=== PATIENT | male | born 1990 | race African-American/Black ===

== ENCOUNTER 2017-06-09 21:35 | Emergency (ER) | payer OTHER ==
[2017-06-09 21:52] VITALS: BP 127/77; BMI 23.1
--- NOTE | 2017-06-09 22:53 | DR.GENAD ---
HPI - PCP Primary Care Physician: NFD - Complaint/Symptoms Chief Complaint Doctors Comments: Patient is complaining of left leg pain worst when he is standing and walking for the past 1 1/2 week. States he has been trying to treat himself at home with hot baths, heat, Advil but it has not been helping. states he works at [employer] and he does a lot of walking. He denies any recent trauma to his leg or hip. He denies chest pain or SOB. States he does not have a local doctor. States the pain is 4 of 10 when setting and 10 of 10 when walking. states his left calf hurts at times. He denies swelling of hands or feet. Chief Complaint:: LEFT LEG PAIN POSTERIOR FROM BUTTOCKS TO KNEE; FEELS LIKE A CRAMP; PAIN FOR APPROX 1 1/2 WEEKS; FOOT WILL GO NUMB SOMETIMES Self Treatment fo Chief Complaint: ADVIL - Nurses notes reviewed Nurses Notes Review: Yes - Source History Provided: Patient - Mode of Arrival Mode of Arrival: Ambulatory - Timing Onset of Chief Complaint: 05/23/17 Came on: Suddenly - Duration Duration: Intermittent How lon Duration: Days - Location Location: left leg pain - Severity Severity: Moderate - Modifying Factors Worsens:: walking and standing Improves:: nothing PMH - PMH Past Medical History: No Past Surgical History: No - Family History History of Family Medical Conditions: No - Social History Alcohol Use: None Do you use any recreational Drugs:: No Lives With: Alone Lives Where: Home - infectious screening In the last 2 months have you had wt loss of >10#?: NO Have you had fever, night sweats or hemotysis?: No Have you traveled outside the country in the last 6 months?: No Isolation: Standard ROS - Review of Systems Constitutional: No Symptoms Reported. negative: See HPI, Chills, Diaphoresis, Fever, Malaise, Weakness, Irritable, Fatigue, Loss of Appetite, Other Eyes: No Symptoms Reported ENTM: No Symptoms Reported. negative: See HPI, Ear Pain, Ear Discharge, Pulling on Ears, Hearing Loss, Nose Pain, Nose Discharge, Epistaxis, Nose Congestion, Mouth Pain, Mouth Swelling, Loose Teeth, Drooling, Throat Pain, Throat Swelling, Ear Foreign Body Respiratoy: No Symptoms Reported. negative: See HPI, Productive Cough, Non- Productive Cough, Moist Cough, Dry Cough, Hacking Cough, Barking Cough, Brassy Cough, Orthopnea, Short of Breath, Stridor, Wheezing, Hemoptysis, Other Cardiovascular: No Symptoms Reported. negative: See HPI, Chest Pain, Edema, Palpitations, Syncope, Cyanosis, Skin Mottling, Other Gastrointestinal/Abdominal: No Symptoms Reported. negative: See HPI, Abdominal Pain, Constipation, Diarrhea, Nausea, Vomiting, Food Intolerance, Other Genitourinary: No Symptoms Reported. negative: See HPI, Discharge, Dysuria, Frequency, Hematuria, Pain, Bleeding, Other Neurological: No Symptoms Reported, Problems Walking (left leg pain). negative : See HPI, Anxiety, Depressed, Emotional Problems, Headache, Numbness, Paresthesia, Pre-existing Deficit, Seizure, Tingling, Tremors, Weakness, Dizziness, Speech Problem, Other Musculoskeletal: Left, Leg Integumentary: No Symptoms Reported. negative: See HPI, Change in Color, Change in Hair/Nails, Dryness, Lesions, Lumps, Rash, Itching, Wound, Bruises, Juandice, Other Hematologic/Lymphatic: No Symptoms Reported. negative: See HPI, Anemia, Blood Clots, Easy Bleeding, Easy Bruising, Swollen Glands, Lymphadenopathy, Other Endocrine: No Symptoms Reported Psychiatric: No Symptoms Reported. negative: See HPI, Anxiety, Depression, Hallucinations, Excessive crying, Suicidal, Other PE - Vital Signs Vitals: Temperature 98.1 F Pulse Rate 84 Respiratory Rate 18 Blood Pressure 127/77 O2 Sat by Pulse Oximetry 99 - General Limitations: No Limitations General Appearance: Alert, In No Apparent Distress - Head Head Exam: Normal Inspection, Atraumatic, Normocephalic - Eyes Eye exam: Normal Appearance, PERRL, EOMI. negative: Scleral Icterus, Conjunctival Injection, Nystagmus, Miosis, Mydrasis, Periorbital Swelling, Periorbital Tenderness, Other - ENT ENT Exam: Normal Exam, Normal Oropharynx, Normal External Ear Exam, Mucous Membranes Moist, TM's Normal Bilaterally TM/Canal Exam: Bilateral Normal Nose Exam: Normal Nose Exam Mouth Exam: Normal Inspection Throat Exam: Normal Inspection - Neck Neck Exam: Normal Inspection, Full ROM, Trachea Midline - Chest Chest Inspection: Normal Inspection, Symmetric Chest Wall Rise - Respiratory Respiratory Exam: Normal Lung Sounds Bilat Respiratory Exam: Bilateral Clear to Auscultation - Cardiovascular Cardiovascular Exam: Regular Rate, Normal Rhythm, Normal Heart Sounds. negative : Bradycardia, Tachycardia, Irregular Rhythm, Systolic Murmur, Diastolic Murmur , Rubs, Gallop, Clicks, JVD, +S1, +S2, +S3, +S4, Other - Abdominal Exam Abdominal Exam: Normal Inspection, Normal Bowel Sounds, Soft. negative: Distention, Tenderness, Guarding, Rebound, Rigidity, Dimnished Bowel Sounds, Hyperactive Bowel Sounds, Hypoactive Bowel Sounds, Organomegaly, Trauma, Incision, Ascites, Mass, Bruit, Pulsatile Mass, Hernia, Other Abdominal Tenderness: negative: RUQ, RLQ, LUQ, LLQ, Epigastrium, Suprapubic, Diffuse, Mild, Moderate, Severe, Other - Extremities Extremities Exam: Normal Inspection, Full ROM, Tenderness (left lower thigh with slight tenderness; no swelling or erythema; pulse 3+ left foot), Normal Capillary Refill, Calf Tenderness (left calf) - Back Back Exam: Normal Inspection, Full ROM. negative: Tenderness, (R) CVA Tenderness, (L) CVA Tenderness, Muscle Spasm, Paraspinal Tenderness, Vertebral Tenderness, Rashes, (R) Sciatic Notch Tenderness, (L) Sciatic Notch Tendern, (R ) Straight Leg Raise, (L) Straight Leg Raise, Other - Neurologic Neurological Exam: Alert, Oriented X3, CN II-XII Intact, Normal Gait, Reflexes Normal - Psychiatric Psychiatric Exam: Normal Affect, Normal Mood - Skin Skin Exam: Warm, Dry, Intact, Normal Color ROR - Labs Reviewed Laboratory Results Reviewed?: Yes (All labs and x-ray results reviewed and discussed with patient) Result Diagrams: 06/09/17 23:05 Laboratory: D-Dimer < 100 ng/mL (0-400) 06/09/17 23:05 Sodium 141 mmol/L (136-145) 06/09/17 23:05 Corrected Sodium TNP 06/09/17 23:05 Potassium 4.1 mmol/L (3.5-5.1) 06/09/17 23:05 Chloride 105 mmol/L (98-107) 06/09/17 23:05 Carbon Dioxide 26.4 mmol/L (21-32) 06/09/17 23:05 BUN 12 mg/dL (7-18) 06/09/17 23:05 Creatinine 0.78 mg/dL (0.70-1.30) 06/09/17 23:05 Est GFR (MDRD) Af Amer > 60 (>60) 06/09/17 23:05 Est GFR (MDRD) Non-Af > 60 (>60) 06/09/17 23:05 Glucose 104 mg/dL (65-99) H 06/09/17 23:05 Calcium 8.5 mg/dL (8.5-10.1) 06/09/17 23:05 Creatine Kinase 332 Units/L (39-308) H 06/09/17 23:05 - XRAY XRAY Interpreted by: Radiologist (Pelvis: No acuatge radiographic abnormality of the pelvis) XRAY Findings: Lumbar spine: No acute radiograp;hic abnormality of the lumbar spine - Diagnosis Discharge Problem: Pain in left lower leg, Myalgia - Discharge Plan Disposition: HOME, SELF-CARE Condition: Stable Prescriptions: Cyclobenzaprine HCl [Flexeril] 5 mg PO TID PRN #30 tab PRN Reason: Muscle Spasms Ibuprofen [MOTRIN TAB 800 MG *] 800 mg PO BID PRN #60 tab PRN Reason: Pain/Inflammation - Follow ups/Referrals Follow ups/Referrals: NFD,None [Primary Care Provider] - 3 days TYRON GARCIA [STAFF PHYSICIAN] - 3 days - Instructions Instructions: Muscle Pain, Adult, Musculoskeletal Pain
[2017-06-09 23:22] LABS: BLOOD UREA NITROGEN 12 mg/dL (7-18); CALCIUM 8.5 mg/dL (8.5-10.1); CARBON DIOXIDE 26.4 mmol/L (21-32); CHLORIDE 105 mmol/L (98-107); CREATINE KINASE 332 Units/L (39-308); CREATININE 0.78 mg/dL (0.70-1.30); SODIUM 141 mmol/L (136-145); eGFR BLACK RACES > 60 (>60); eGFR NON BLACK RACES > 60 (>60)
--- NOTE | 2017-06-10 00:21 | RAD ---
Pelvis, one view Indication: Left leg and buttock pain Comparison: None Findings: No acute fracture or malalignment is identified. Joint spaces are preserved without signifi cant arthropathy. SI joints and pubic symphysis are intact. Surrounding soft tissues are unremarkable . Impression: No acute radiographic abnormality of the pelvis. Reported By:
--- NOTE | 2017-06-10 00:22 | RAD ---
Lumbar spine, five views Indication: Left leg and buttock pain Comparison: None Findings: Vertebral body heights and alignment are normal. No acute fracture or subluxation is identi fied. No significant degenerative changes are appreciated. SI joints are normal. Surrounding soft tis sues are unremarkable. Impression: No acute radiographic abnormality of the lumbar spine. Reported By:
[2017-06-10] MEDS ORDERED: MOTRIN TAB 800 MG PO STA (00:30)
[2017-06-10] MEDS ORDERED: FLEXERIL TAB 10 MG PO STA (00:30)
[2017-06-10] MEDS ORDERED: PREDNISONE TAB 20 MG PO ONE ×2 (00:30→00:39)
[2017-06-10] MEDS ORDERED: MOTRIN TAB 800 MG PO ONE (00:39)
[2017-06-10] MEDS ORDERED: FLEXERIL TAB 10 MG ONE ×2 (00:39→00:40)
== END 2017-06-10 00:45 | disposition home or self-care (01) ==
LOC: ER 21:35
DX: M79.662 Pain in left lower leg (principal); M79.1 Myalgia
CPT/HCPCS: 36415; 72110; 72170; 80048; 82550; 85378; 99282; 99283; J7506